=== PATIENT | female | born 1940 | race Caucasian/White ===

== ENCOUNTER → 2016-07-20 | Outpatient (CLI) | payer MEDICARE | LOC: YCHH 12:18 | PROVIDERS: ATTEND Family Medicine | DX: E11.9 Type 2 diabetes mellitus without complications (principal); D64.9 Anemia, unspecified; E78.5 Hyperlipidemia, unspecified ==

== ENCOUNTER → 2016-10-13 | Outpatient (CLI) | payer MEDICARE | END | disposition home or self-care (01) | LOC: YCHH 09:25 | PROVIDERS: ATTEND Family Medicine | DX: N18.9 Chronic kidney disease, unspecified (principal); E11.8 Type 2 diabetes mellitus with unspecified complications; E53.8 Deficiency of other specified B group vitamins; K74.60 Unspecified cirrhosis of liver; D50.8 Other iron deficiency anemias ==

== ENCOUNTER 2016-11-28 12:16 | Emergency (ER) | payer MEDICARE ==
--- NOTE | 2016-11-28 12:27 | ED.PDOC ---
History of Present Illness - General Chief Complaint: Respiratory Problem Stated Complaint: RECTAL BLEEDING, CONGESTION Time Seen by Provider: 11/28/16 12:26 Source: patient, RN notes reviewed Exam Limitations: no limitations - History of Present Illness Initial Comments: Ming Martinez 76 y/o female stated yina she had productive cough and nasal congestion started wednesday which persisted and the following day had bright red blood on defacation . 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;copd;htn Timing/Duration: intermittent - 4 days ago, other Severity: moderate Improving Factors: nothing Worsening Factors: nothing Associated Symptoms: shortness of breath Allergies/Adverse Reactions: Allergies Codeine Allergy (Verified 11/28/16 12:42) Vomitting Morphine Allergy (Verified 07/17/15 10:52) Other decreased breathing Penicillins Allergy (Verified 07/17/15 10:52) Rash Hydrocodone [From Vicodin] Adverse Reaction (Verified 07/17/15 10:52) Nausea Oxycodone [From Percocet] Adverse Reaction (Verified 07/17/15 11:01) Nausea Oxycontin causes hallucinations short acting oxycodone causes nausea Sulfa Antibiotics Adverse Reaction (Verified 07/17/15 10:52) Nausea Home Medications: Ambulatory Orders Ascorbic Acid [Vitamin C] 500 mg PO DAILY 07/17/15 Cyanocobalamin Inj [Vitamin B-12 Inj] 1,000 mcg IM MONTHLY 07/17/15 Fe Fum-Iron Polysacch Complex- [Integra Plus] 1 cap PO DAILY 07/17/15 Insulin Aspart [Novolog Flexpen] 35 unit SC TID 07/17/15 Insulin Glargine [Lantus Solostar] 45 unit SC BID 07/17/15 Ipratropium/Albuterol [Duoneb] 3 ml NEB BID 07/17/15 Latanoprost 0.005% Ophth [Xalatan 0.005% Ophthalmic Drops] 1 drop RIGHT_EYE DAILY 07/17/15 Olopatadine HCl [Pataday] 0.2 % BOTH_EYES DAILY 07/17/15 Omeprazole [Prilosec] 40 mg PO BID PRN 07/17/15 Polyethylene Glycol 3350 [Miralax] 17 gm PO DAILY 07/17/15 Triamterene & Hydrochlorothiaz [Maxzide-25 37.5-25 mg] 1 tab PO DAILY 07/17/15 Valsartan [Diovan] 160 mg PO DAILY 07/17/15 Cefdinir 300 mg PO Q12H #16 cap 07/20/15 Azithromycin [Zithromax Z-Aj] 1 ea PO DAILY #1 pack 11/28/16 Benzonatate Perles [Tessalon Perles] 200 mg PO TID #30 cap 11/28/16 Phenylephrine-Mineral Oil-Kang [Preparation H] 28 gm RI TID #1 oin 11/28/16 Review of Systems - Review of Systems Constitutional: States: no symptoms reported EENTM: States: no symptoms reported Respiratory: States: see HPI, other - obstructive sleep apnea on cpap at hs and prn Cardiology: States: see HPI Gastrointestinal/Abdominal: States: see HPI Genitourinary: States: no symptoms reported Musculoskeletal: States: no symptoms reported Skin: States: no symptoms reported Neurological: States: no symptoms reported Endocrine: States: no symptoms reported Past Medical History (General) - Patient Medical History Hx Stroke: No Hx of COPD: Yes Hx Cardiac Disorders: Yes - bradycardia, htn Hx Congestive Heart Failure: No Hx Hypertension: Yes Hx Diabetes: Yes Hx Gastroesophageal Reflux: Yes Hx MRSA: No Hx Other PMH: Yes - kira Surgical History: cholecystectomy, other - hysterectomy,right cataract,ankle ,c- section,[id number],egd,esophageal dilatation - Vaccination History Hx Influenza Vaccination: Yes - 2014 Hx Pneumococcal Vaccination: Yes - 2014 - Social History Hx Tobacco Use: Yes - quit 1989 Hx Alcohol Use: No - social drinker in her 20's Hx Substance Use: No Hx Substance Use Treatment: No Hx Depression: No Hx Physical Abuse: No Hx Emotional Abuse: No - Activities of Daily Living Patient Lives Alone: No - Grooming Ability: Independent Eating (Feeding) Ability: Independent Toileting Ability: Independent Family Medical History - Family History Father Living Status: Cause of : CVA Hx Family Congestive Heart Failure: Yes Hx Family Hypertension: Yes - parents Hx Cardiac Disease: Yes - brother Hx Family Cancer: Yes - colon-parents,breast/uterus-mom Physical Exam - Physical Exam General Appearance: Alert, No apparent distress Eye Exam: right normal - with corrective glasses, left other - legally blind Ears, Nose, Throat: hearing grossly normal, normal ENT inspection, normal pharynx Neck: non-tender, full range of motion, supple Respiratory: chest non-tender, no respiratory distress, rhonchi Cardiovascular/Chest: normal peripheral pulses, regular rate, rhythm, no edema, no murmur Peripheral Pulses: radial,right: 2+, radial,left: 2+ Gastrointestinal/Abdominal: normal bowel sounds, non tender, soft, no organomegaly Rectal Exam: blood streaked stool, heme positive stool, hemorrhoids - external/ internal with prolapse and bleeding Back Exam: normal inspection, no CVA tenderness Extremity: normal range of motion, non-tender, no calf tenderness Neurologic: no motor/sensory deficits, alert, normal mood/affect, oriented x 3 Skin Exam: normal color, warm/dry Lymphatic: no adenopathy Progress - Results/Orders Results/Orders: Vital Signs - 8 hr 11/28/16 11/28/16 11/28/16 12:36 12:51 13:42 Temperature 100.2 F H 99.6 F Pulse Rate 79 Pulse Rate [ 95 H 81 Left Radial] Respiratory 24 20 18 Rate Blood Pressure 175/102 166/73 [Left Arm] O2 Sat by Pulse 94 L 99 94 L Oximetry 11/28/16 12:30 IV Care:Saline Lock per Protoc QSHIFT 11/28/16 13:20 URINALYSIS Stat 11/28/16 14:36 Azithromycin IV [Zithromax IV] 500 mg Sodium Chloride 0.9% 250Ml [NS 250ml] 250 ml IVPB ONCE 11/29/16 09:00 [facility] Daily Laboratory Results WBC 6.7 K/mm3 (4.8-10.8) 11/28/16 12:55 RBC 3.66 M/mm3 (4.20-5.40) L 11/28/16 12:55 Hgb 12.0 gm/dL (12.0-16.0) 11/28/16 12:55 Hct 35.1 % (36.0-47.0) L 11/28/16 12:55 MCV 96.1 fl (81.0-99.0) 11/28/16 12:55 MCH 32.7 pg (27.0-31.0) H 11/28/16 12:55 MCHC 34.2 g/dL (33.0-37.0) 11/28/16 12:55 RDW 14.1 % (11.5-14.5) 11/28/16 12:55 Plt Count 88 K/mm3 (130-400) L 11/28/16 12:55 MPV 8.2 fl (7.40-10.4) 11/28/16 12:55 Absolute Neuts (auto) 4.90 K/uL (1.8-6.8) 11/28/16 12:55 Absolute Lymphs (auto) 0.80 K/uL (1.0-3.4) L 11/28/16 12:55 Absolute Monos (auto) 0.80 K/uL (0.2-0.8) 11/28/16 12:55 Absolute Eos (auto) 0.10 K/uL (0.0-0.4) 11/28/16 12:55 Absolute Basos (auto) 0.00 K/uL (0.0-0.1) 11/28/16 12:55 Neutrophils % 72.8 % (42.0-78.0) 11/28/16 12:55 Lymphocytes % 12.7 % (20.0-50.0) L 11/28/16 12:55 Monocytes % 12.6 % (2.0-9.0) H 11/28/16 12:55 Eosinophils % 1.5 % (1.0-5.0) 11/28/16 12:55 Basophils % 0.4 % (0.0-2.0) 11/28/16 12:55 PT 14.8 SECONDS (9.4-12.5) H 11/28/16 12:55 INR 1.310 11/28/16 12:55 PTT (SP) 33.7 SECONDS (25.1-36.5) 11/28/16 12:55 Sodium 138 mmol/L (135-145) 11/28/16 12:55 Potassium 3.7 mmol/L (3.6-5.0) 11/28/16 12:55 Chloride 105 mmol/L (101-111) 11/28/16 12:55 Carbon Dioxide 28 mmol/L (21-31) 11/28/16 12:55 Anion Gap 8.7 (12-18) L 11/28/16 12:55 BUN 15 mg/dL (7-18) 11/28/16 12:55 Creatinine 0.73 mg/dL (0.6-1.3) 11/28/16 12:55 BUN/Creatinine Ratio 20.5 (10-20) H 11/28/16 12:55 Random Glucose 123 mg/dL (70-105) H 11/28/16 12:55 Serum Osmolality 277.9 mOsm/L (275-295) 11/28/16 12:55 Lactic Acid 2.5 mmol/L (0.5-2.2) H* 11/28/16 12:55 Calcium 9.8 mg/dL (8.4-10.2) 11/28/16 12:55 Total Bilirubin 1.4 mg/dL (0.2-1.0) H 11/28/16 12:55 AST 50 IU/L (10-42) H 11/28/16 12:55 ALT 27 IU/L (10-60) 11/28/16 12:55 Alkaline Phosphatase 65 IU/L (42-121) 11/28/16 12:55 Serum Total Protein 7.0 gm/dL (6.4-8.2) 11/28/16 12:55 Albumin 2.8 g/dl (3.2-5.5) L 11/28/16 12:55 Globulin 4.2 gm/dL (2.3-3.5) H 11/28/16 12:55 Albumin/Globulin Ratio 0.7 (1.1-1.9) L 11/28/16 12:55 Stool Occult Blood Positive 11/28/16 13:32 - EKG/XRAY/CT XRAY: chest - no acute abnormalities/radiologist Departure - Departure Clinical Impression: Bronchitis, Bleeding hemorrhoids, Thrombocytopenia Hemorrhoids Qualifiers: Hemorrhoid type: third degree Qualified Code(s): K64.2 - Third degree hemorrhoids Time of Disposition: 14:42 Disposition: Discharge to Home or Self Care Condition: Fair Departure Forms: ED Discharge - Pt. Copy, Patient Portal Self Enrollment Instructions: Hemorrhoids (Alternative Therapy), DI for Hemorrhoid Banding, DI for Hemorrhoids Diet: other - high fiber diet Prescriptions: Azithromycin [Zithromax Z-Aj] 1 ea PO DAILY #1 pack Benzonatate Perles [Tessalon Perles] 200 mg PO TID #30 cap Phenylephrine-Mineral Oil-Kang [Preparation H] 28 gm RI TID #1 oin Home Medications: Ambulatory Orders Ascorbic Acid [Vitamin C] 500 mg PO DAILY 07/17/15 Cyanocobalamin Inj [Vitamin B-12 Inj] 1,000 mcg IM MONTHLY 07/17/15 Fe Fum-Iron Polysacch Complex- [Integra Plus] 1 cap PO DAILY 07/17/15 Insulin Aspart [Novolog Flexpen] 35 unit SC TID 07/17/15 Insulin Glargine [Lantus Solostar] 45 unit SC BID 07/17/15 Ipratropium/Albuterol [Duoneb] 3 ml NEB BID 07/17/15 Latanoprost 0.005% Ophth [Xalatan 0.005% Ophthalmic Drops] 1 drop RIGHT_EYE DAILY 07/17/15 Olopatadine HCl [Pataday] 0.2 % BOTH_EYES DAILY 07/17/15 Omeprazole [Prilosec] 40 mg PO BID PRN 07/17/15 Polyethylene Glycol 3350 [Miralax] 17 gm PO DAILY 07/17/15 Triamterene & Hydrochlorothiaz [Maxzide-25 37.5-25 mg] 1 tab PO DAILY 07/17/15 Valsartan [Diovan] 160 mg PO DAILY 07/17/15 Cefdinir 300 mg PO Q12H #16 cap 07/20/15 Azithromycin [Zithromax Z-Aj] 1 ea PO DAILY #1 pack 11/28/16 Benzonatate Perles [Tessalon Perles] 200 mg PO TID #30 cap 11/28/16 Phenylephrine-Mineral Oil-Kang [Preparation H] 28 gm RI TID #1 oin 11/28/16 Additional Instructions: RETURN TO EMERGENCY ROOM NEEDED;CALL UP DR. BOWDEN OFFICE BELT CHANGER 12/01/2016 for appointment
[2016-11-28] MEDS ORDERED: IPRATROPIUM/ALBUTEROL 3 ML VIAL NEB ONE ×2 (12:32→16:43)
--- NOTE | 2016-11-28 12:51 | RAD ---
EXAM DESCRIPTION: Chest,2 Views CLINICAL HISTORY: 76 years, Female, cough COMPARISON: Chest x-ray dated 03/09/2012. FINDINGS: PA and lateral chest radiographs were performed. The patient is rotated to the RIGHT on the frontal radiograph. The lungs are well expanded and clear. The aorta is tortuous. The costophrenic sulci are sharp. The cardiac silhouette, hilar regions, trachea, soft tissues and bony structures are unremarkable aside from degenerative changes. IMPRESSION: No acute cardiopulmonary disease. Electronically signed by: Carina Euceda MD 11/28/2016 12:51 PM CDT
[2016-11-28] MEDS ORDERED: SODIUM CHLORIDE 0.9% 500ML 500 ML IVS ONE (13:41)
[2016-11-28] MEDS ORDERED: AZITHROMYCIN IV 500 MG in SODIUM CHLORIDE 0.9% 250ML 250 ML IVPB ONE (14:36)
[2016-11-28] MEDS ORDERED: BENZONATATE PERLES 100 MG CAP PO ONE (14:37)
[2016-11-28] MEDS ORDERED: AZITHROMYCIN IV 500 MG VIAL IVPB ONE (14:45)
[2016-11-28] MEDS ORDERED: SODIUM CHLORIDE 0.9% 250ML 250 ML ONE (14:45)
[2016-11-28 17:28] VITALS: BP 154/76; TEMP 98.9; O2SAT 93
== END 2016-11-28 17:15 | disposition home or self-care (01) ==
LOC: ER 12:16
DX: J40 Bronchitis, not specified as acute or chronic (principal); K64.2 Third degree hemorrhoids; D69.6 Thrombocytopenia, unspecified; J44.9 Chronic obstructive pulmonary disease, unspecified; I10 Essential (primary) hypertension; R00.1 Bradycardia, unspecified; E11.9 Type 2 diabetes mellitus without complications; K21.9 Gastro-esophageal reflux disease without esophagitis; G47.33 Obstructive sleep apnea (adult) (pediatric); Z87.891 Personal history of nicotine dependence; Z88.6 Allergy status to analgesic agent; Z88.0 Allergy status to penicillin; Z88.2 Allergy status to sulfonamides; Z79.899 Other long term (current) drug therapy; Z79.4 Long term (current) use of insulin; Z80.0 Family history of malignant neoplasm of digestive organs; Z80.3 Family history of malignant neoplasm of breast; Z80.8 Family history of malignant neoplasm of other organs or systems
CPT/HCPCS: 36415; 71020; 80053; 82270; 83605; 85025; 85610; 85730; 94640; J0456; J7040; J7050; J7620

== ENCOUNTER → 2016-12-22 | Outpatient (CLI) | payer MEDICARE | END | disposition home or self-care (01) | LOC: GMAL 09:22 | PROVIDERS: ATTEND Family Medicine | DX: J44.9 Chronic obstructive pulmonary disease, unspecified (principal); E11.9 Type 2 diabetes mellitus without complications ==

== ENCOUNTER → 2017-01-05 | Outpatient (CLI) | payer MEDICARE | LOC: YCHH 09:09 | PROVIDERS: ATTEND Family Medicine | DX: J44.9 Chronic obstructive pulmonary disease, unspecified (principal); E11.9 Type 2 diabetes mellitus without complications; I50.9 Heart failure, unspecified ==

== ENCOUNTER → 2017-05-25 | Outpatient (CLI) | payer MEDICARE | END | disposition home or self-care (01) | LOC: YCHH 10:24 | PROVIDERS: ATTEND Family Medicine | DX: D64.9 Anemia, unspecified (principal); E11.9 Type 2 diabetes mellitus without complications; K74.60 Unspecified cirrhosis of liver; N18.9 Chronic kidney disease, unspecified; E78.5 Hyperlipidemia, unspecified; I50.9 Heart failure, unspecified; E53.8 Deficiency of other specified B group vitamins ==

== ENCOUNTER → 2017-06-29 | Outpatient (CLI) | payer MEDICARE | END | disposition home or self-care (01) | LOC: YCHH 10:15 | PROVIDERS: ATTEND Family Medicine | DX: K74.69 Other cirrhosis of liver (principal); N18.9 Chronic kidney disease, unspecified; D63.1 Anemia in chronic kidney disease ==

== ENCOUNTER → 2017-07-27 | Outpatient (CLI) | payer MEDICARE | END | disposition home or self-care (01) | LOC: YCHH 10:59 | PROVIDERS: ATTEND Family Medicine | DX: K74.60 Unspecified cirrhosis of liver (principal); N18.9 Chronic kidney disease, unspecified ==

== ENCOUNTER → 2017-08-24 | Outpatient (CLI) | payer MEDICARE | LOC: YCHH 09:32 | PROVIDERS: ATTEND Family Medicine | DX: E11.9 Type 2 diabetes mellitus without complications (principal); D64.9 Anemia, unspecified ==

== ENCOUNTER → 2017-09-07 | Outpatient (CLI) | payer MEDICARE | LOC: YCHH 10:41 | PROVIDERS: ATTEND Family Medicine | DX: E11.9 Type 2 diabetes mellitus without complications (principal); K74.60 Unspecified cirrhosis of liver ==